=== PATIENT | male | born 1970 | race Caucasian/White ===

== ENCOUNTER → 2016-12-02 | Outpatient (CLI) | payer BC ==
[~2016-12-02] MED LIST: APAP OR; CALTRATE 600 +1 TA1 PO; DELTASONE5 MG PO; FISH OIL1000 MG PO; FLEXERIL10 MG PO; HYDROCHLOROTHIA1 TAB PO; HYDROCODON OR; IBUPROFEN200 MG PO; KEFLEX 500MG.500 MG PO; LEVOTHROID0.1 MG PO; LEVOTHYROXIN0.125 M1 PO; LORATADINE 10MG10 M1 PO; METHOCARBAMOL750 MG PO; NAPROSYN 500MG500 MG PO; NEXIUM40 MG PO; PRAVASTATIN20 MG PO; PRENATAL PLUS1 TA1 PO; PRILOSEC OTC20 MG PO; SYNTHROID 0.0.125 MG PO; SYNTHROID 0.1M0.1 MG PO; TYLENOL W/CODEI1 TAB PO; VITAMIN D50000 I1 PO; VOLTAREN75 MG PO; ZYRTEC ALLERGY10 MG PO
== END ==
LOC: CARL-LAB 07:41
DX: E03.9 Hypothyroidism, unspecified (principal)